=== PATIENT | male | born 1945 | race Caucasian/White ===

== ENCOUNTER 2020-08-30 12:14 | Emergency (ER) | payer MEDICARE, OTHER ==
[~2020-08-30 12:14] MED LIST: AMIODARONE HCL200 MG PO; ASPIRIN CHEWABL81 MG PO; CALCIPOTRIENE120 G1 TOP; DESONIDE15 GM TOP; ELIQUIS5 MG PO; FUROSEMIDE40 MG PO; KLOR-CON M 1010 MEQ PO; LASIX40 MG PO; LIPITOR40 MG PO; MAGNESIUM100 MG PO; MUPIROCIN 2%22 GM TOP; PRILOSEC20 MG PO; PRINIVIL10 MG PO; SPIRIVA18 MCG PO; SYMBICORT 80-10.2 GM INH; TERAZOSIN HCL10 MG PO; TESSALON PERLE100 MG PO; TOPROL XL 50 MG50 MG PO; TRIAMCINOLONE 080 GM TOP; VENTOLIN (2.5 MG/3 M INH; VENTOLIN HFA IN18 GM INH; VITAMIN D325 MC2 PO; ZOLOFT100 MG PO
[2020-08-30 12:48] LABS: BASOPHIL 0.9 % (0-2); EOSINOPHIL 4.7 % (0-7); HCT 36.5 % (42.0-52.0); HGB 10.9 g/dl (13.2-18.0); LYMPHOCYTE 24.7 % (15-48); MCH 25.7 pg (25.0-31.0); MCHC 29.9 g/dL (32.0-36.0); MCV 86.1 fL (78.0-100.0); MONOCYTE 8.1 % (0-12); MPV 10.4 fL (6.0-9.5); NEUTROPHIL 61.2 % (41-80); NRBC 0; PLT 187 K/uL (150-400); RBC 4.24 M/uL (4.70-6.00); RDW 16.6 % (11.5-14.0); WBC 6.8 K/uL (4.0-10.5)
[2020-08-30 12:54] LABS: INR 1.31 (0.9-1.2); PROTHROMBIN TIME 15.6 SECONDS (11.8-13.4); PTT 34.4 SECONDS (24.4-34.7)
[2020-08-30 13:10] LABS: ALBUMIN 3.5 g/dL (3.4-5.0); BILIRUBIN - TOTAL 0.6 mg/dL (0.2-1.0); BUN/CREAT RATIO (CALC) 17.3 RATIO; CREATININE 1.5 mg/dL (0.67-1.17); GLOBULIN (CALCULATION) 3.7 g/dL; POTASSIUM 4.6 mmol/L (3.5-5.1); TOTAL PROTEIN 7.2 g/dL (6.4-8.2)
== END 2020-08-30 17:30 | disposition left against medical advice (07) ==
LOC: FER 12:14
PROVIDERS: Internal Medicine
DX: J44.9 Chronic obstructive pulmonary disease, unspecified (principal); I25.2 Old myocardial infarction; I50.9 Heart failure, unspecified; Z95.0 Presence of cardiac pacemaker; Z95.1 Presence of aortocoronary bypass graft; Z53.8 Procedure and treatment not carried out for other reasons
CPT/HCPCS: 36415; 71045; 80053; 83880; 84484; 85025; 85610; 85730; 93005